=== PATIENT | male | born 1980 | race Two or more races ===

== ENCOUNTER 2022-08-13 14:51 | Inpatient (IN) | payer MEDICAID ==
[~2022-08-13] VITALS: Ht 195.6 cm; Wt 176.3 kg
[2022-08-13 15:21] LABS: Basophils # (auto) 0.1 10 ^3/uL (0-0.2); Basophils % (auto) 0.6 % (0.0-2.0); Eosinophils # (auto) 0.1 10 ^3/uL (0-0.8); Eosinophils % (auto) 1.1 % (0.0-7.0); Hematocrit 49.1 % (41.0-53.0); Hemoglobin 16.7 g/dL (13.5-17.5); Lymphocytes # (auto) 2.2 10 ^3/uL (0.4-5.4); Mean Corpuscular Hemoglobin 30.2 pg (28.0-32.0); Mean Corpuscular Hgb Conc. 33.9 g/dL (32.0-36.0); Monocytes # (auto) 0.9 10 ^3/uL (0-1.3); Monocytes % (auto) 8.6 % (0.0-12.0); Neutrophils # (auto) 6.6 10 ^3/uL (1.6-8.6); Neutrophils % (auto) 67.7 % (37.0-80.0); Nucleated Red Blood Cells % 0.3 %; Red Blood Cells 5.52 10^6/uL (4.5-5.90); Red Cell Distribution Width 13.8 % (11.8-14.3); White Blood Cell 9.8 10^3/uL (4.4-10.8)
[2022-08-13 16:04] LABS: Albumin 3.6 g/dL (3.4-5.0); Calcium 8.8 mg/dL (8.5-10.1); Potassium 4.5 mmol/L (3.5-5.1)
[2022-08-13 16:09] LABS: BUN/Creatinine Ratio 21.9 (10.0-20.0); Total Protein 6.8 g/dL (6.4-8.2)
[2022-08-13] MEDS ORDERED: CARV12.544 PO (18:54)
[2022-08-13] MEDS ORDERED: SACU1TAB PO (18:54)
[2022-08-13] MEDS ORDERED: SPIR25TA8 PO (18:54)
[2022-08-13] MEDS ORDERED: MORPHINE SULFATE INJ 2 MG/ml SYRG IV PRN (19:00)
[2022-08-13] MEDS ORDERED: ENOXAPARIN SOD 150 MG/1 ML SYRINGE SC ONE (19:00)
[2022-08-13] MEDS ORDERED: NITROGLYCERIN 0.4 MG SL TAB SL PRN (19:00)
[2022-08-13] MEDS ORDERED: FUROSEMIDE 40 MG/4 ML VIAL IV ONE (19:00)
[2022-08-13] MEDS ORDERED: IOHEXOL 350 MG/ML 100ML IJ ONE (19:35)
[2022-08-13 19:57] LABS: Cholesterol 167 mg/dL (< 200); Triglycerides 193 mg/dL (< 150)
[2022-08-13 20:00] LABS: HDL Cholesterol 36 mg/dL (40-59); LDL Cholesterol 113 mg/dL (< 100)
[2022-08-13] MEDS: SPIRONOLACTONE 25 MG TAB PO SCH (22:50)
[2022-08-13] MEDS: CARVEDILOL 12.5 MG TAB PO SCH (22:50)
[2022-08-13] MEDS: SACUBITRIL-VALSARTAN 24mg/26mg TAB PO SCH (22:50)
[2022-08-14 06:15] LABS: Basophils # (auto) 0.1 10 ^3/uL (0-0.2); Basophils % (auto) 0.7 % (0.0-2.0); Eosinophils # (auto) 0.1 10 ^3/uL (0-0.8); Eosinophils % (auto) 1.3 % (0.0-7.0); Hematocrit 49.2 % (41.0-53.0); Hemoglobin 16.8 g/dL (13.5-17.5); Lymphocytes # (auto) 1.9 10 ^3/uL (0.4-5.4); Lymphocytes % (auto) 23.2 % (10.0-50.0); Mean Corpuscular Hemoglobin 30.6 pg (28.0-32.0); Mean Corpuscular Hgb Conc. 34.1 g/dL (32.0-36.0); Mean Corpuscular Volume 89.6 fL (80.0-100.0); Monocytes # (auto) 0.7 10 ^3/uL (0-1.3); Neutrophils # (auto) 5.2 10 ^3/uL (1.6-8.6); Neutrophils % (auto) 65.8 % (37.0-80.0); Nucleated Red Blood Cells % 0.2 %; Red Blood Cells 5.49 10^6/uL (4.5-5.90); Red Cell Distribution Width 14.5 % (11.8-14.3)
[2022-08-14 06:28] LABS: Albumin 3.4 g/dL (3.4-5.0); Calcium 9.3 mg/dL (8.5-10.1); Potassium 4.1 mmol/L (3.5-5.1)
[2022-08-14 06:30] LABS: BUN/Creatinine Ratio 22.3 (10.0-20.0)
[2022-08-14 06:32] LABS: Bilirubin, Total 0.9 mg/dL (0.2-1.0); Total Protein 7.5 g/dL (6.4-8.2)
[2022-08-14] MEDS: SACUBITRIL-VALSARTAN 24mg/26mg TAB PO SCH (09:00)
[2022-08-14] MEDS: SPIRONOLACTONE 25 MG TAB PO SCH (09:00)
[2022-08-14] MEDS: CARVEDILOL 12.5 MG TAB PO SCH (09:00)
[2022-08-14] MEDS ORDERED: ENOXAPARIN SOD 40 MG/0.4 ML SYRINGE SC SCH (10:00)
[2022-08-14] MEDS ORDERED: FUROSEMIDE 40 MG/4 ML VIAL IV SCH (10:00)
[2022-08-14 13:00] VITALS: BP 122/90
[2022-08-14 13:15] VITALS: BP 122/90
[2022-08-14] MEDS ORDERED: ASPirin 81 mg TAB PO SCH (14:29)
[2022-08-14] MEDS ORDERED: SPIR25TA8 PO (14:46)
[2022-08-14] MEDS ORDERED: SACU1TAB PO (14:46)
[2022-08-14] MEDS ORDERED: CARV12.544 PO (14:46)
[2022-08-14] MEDS ORDERED: FURO40TA4 PO (14:46)
[2022-08-14 14:52] VITALS: BP 122/90
[2022-08-14] MEDS ORDERED: ATORVASTATIN 20 MG TAB PO SCH (22:00)
[2022-08-16 08:50] LABS: Hepatitis B Surface Antibody Negative (Negative)
[2022-08-16 09:25] LABS: Hepatitis A Total Antibody Positive (Negative)
[2022-08-16 10:00] LABS: Hepatitis C Antibody Negative (Negative)
== END 2022-08-14 16:32 | disposition home or self-care (01) | DRG 194 ==
LOC: ER 14:51 → TELE 18:54 → TELE-WESTW 08-14 12:55
PROVIDERS: ADMIT Registered Nurse; ATTEND Hospitalist
DX: I11.0 Hypertensive heart disease with heart failure (principal); E66.01 Morbid (severe) obesity due to excess calories; I50.43 Acute on chronic combined systolic (congestive) and diastolic (congestive) heart failure; E78.5 Hyperlipidemia, unspecified; F17.210 Nicotine dependence, cigarettes, uncomplicated; I16.0 Hypertensive urgency; F12.90 Cannabis use, unspecified, uncomplicated; R74.01 Elevation of levels of liver transaminase levels; Z68.42 Body mass index [BMI] 45.0-49.9, adult; Z91.199 Patient's noncompliance with other medical treatment and regimen due to unspecified reason
CPT/HCPCS: 36415; 71045; 71275; 76705; 80053; 80061; 80320; 82306; 83036; 83880; 84443; 84484; 85025; 85379; 86704; 86706; 86708; 86803; 87340; 93970; 99291; G0378